=== PATIENT | male | born 1940 | race Caucasian/White ===

== ENCOUNTER 2020-03-23 06:57 | Inpatient (IN) ==
[2020-03-23] MEDS ORDERED: BACITRACIN INJ 50,000 UNIT VIAL ONE (07:17)
[2020-03-23] MEDS ORDERED: LIDOCAINE HCL 1% 20 ML VIAL ONE (07:17)
[2020-03-23] MEDS ORDERED: BUPIVACAINE 0.25% 30 ML VIAL ONE (07:17)
[2020-03-23] MEDS ORDERED: fentaNYL citrate 100 MCG/2 ML VIAL ONE (07:37)
[2020-03-23] MEDS ORDERED: MIDAZOLAM HCL 5 MG/ML 1 ML VIAL ONE (07:37)
[2020-03-23] MEDS ORDERED: CEFAZOLIN 250 MG/ML 1 GM VIAL ONE (07:37)
--- NOTE | 2020-03-23 10:12 | Post Anesthesia Assessment ---
Date of Service March 23, 2020 Post Sedation Assessment Vital Signs Temp Pulse Resp BP Pulse Ox 03/23/20 07:10 36.8 C 35 L 16 169/74 H 99 Recovery Score Activity: Moves 4 extremities Respiration: Deep Breath/Cough Circulation: +/-20% PreAnes Value Consciousness: Fully Awake Oxygen Saturation: > 92% On Room Air Discharge Sedation Level of Care: Fast Track Phase II Post Sedation Plan On clinical assessment, the patient appears to have tolerated the sedation without complications. Patient is recovering as anticipated. Patient will continue to be monitored by nursing and may be discharged when sedation discharge criteria are met per below protocol. Upon Completions of procedure up to 15 minutes continue every 5 minute vital signs and the P.A.R. score; then discharge to a Phase I or Fast Track to Phase II per the following guidelines: * Discharge Patient to appropriate Phase II area if PAR is 8 or greater or return to pre- procedure baseline. The post - procedure orders will be as directed. * If PAR score is less than 8 or not return to pre-procedure baseline then patient will follow Phase I monitoring till PAR is reached for Phase II. The Phase I may be done in procedure room or may call to secure a Phase I area. * If naloxone or flumazenil are used for reversal, hold in Phase I for continued monitoring from when last reversal dose was given for a minimum of 60 minutes or longer pending the nurse and/or physician discretion of patient condition before discharge to Phase II. Please call the Sedation Physician to re-evaluate and complete post-note for discharge to Phase II area. Do NOT discharge from procedure sedation or Phase 1 until post- sedation evaluation note is complete by procedure /sedation MD Sedation Discharge Instructions to be given to the patient at discharge to home.
--- NOTE | 2020-03-23 10:12 | History & Physical Bridge Note ---
Date of Service March 23, 2020 History & Physical Bridge Note I have examined the patient, reviewed the History & Physical and in the interval since the performance of the History & Physical I have noted the following changes of clinical significance: no changes noted
--- NOTE | 2020-03-23 10:12 | Pre Anesthesia Assessment ---
Date of Service March 23, 2020 Pre Sedation Assessment Vital Signs Temp Pulse Resp BP Pulse Ox 03/23/20 07:10 36.8 C 35 L 16 169/74 H 99 Cardiovascular + bradycardic and + irregularly irregular Respiratory normal respiratory effort, lungs clear to auscultation Pre-Sedation Airway Assessment Smoking Status: Never smoker Hx Sleep Apnea: No Short, Thick Neck: No Thyromental Distance: > or= 3.5 Finger Breadths Oral Cavity: + WNL Mallampati Class: I ASA: ASA3 NPO Status Date of Last Intake of Fluids: 03/22/20 Time of Last Intake of Fluids: 18:00 Date of Last Intake of Solid Food: 03/22/20 Time of Last Intake of Solid Foods: 18:00 Procedure Planning Contraindications for Sedation: none Current Medications Reviewed: Yes Notes The planned sedation has been discussed with the patient. Informed Consent was obtained. I have identified the patient, determined the appropriateness of sedation and have assessed the patient immediately prior to the procedure. All medicine(s) and interventions are by my order.
[2020-03-23] MEDS ORDERED: OXYCODONE/ACETAMINOPHEN 5mg/325mg TAB PO PRN (10:13)
[2020-03-23] MEDS ORDERED: ACETAMINOPHEN 325 MG TAB PO PRN (10:13)
--- NOTE | 2020-03-23 10:13 | Operative Report ---
Post Operative Report Pre & Post Diagnosis NICM, CHB, permanent AF Operation Date: 03/23/20 08:00 <No data on this case meets the specified criteria> I identified the patient and participated in the time-out.: Yes Procedure Operation Date: 03/23/20 08:00 Actual Procedures p Pacer with Ventricular Lead - Rosi Jensen DO s Lead LV (No Priopr Implant) - Rosi Jensen DO s Venogram, Unilateral - Rosi Jensen DO Surgeon Rosi Jensen, Fisher Diving none Estimated Blood Loss 20 Findings Consistent with Post-Op Diagnosis Specimens none Description of Procedure see official report I attest to the content of the Intraoperative Record and any orders documented therein. Any exceptions are noted below.
[2020-03-23] MEDS ORDERED: WARFARIN SOD 2.5 MG TAB PO SCH ×2 (10:15→16:00)
--- NOTE | 2020-03-23 10:22 | Discharge Summary ---
Date of Service March 24, 2020 Admission HPI Per Admitting Provider pt admitted for elective BIV ppm due to CHB and NICM Admission Exam Per Admitting Provider aaox3, NAD NC/AT, EOMI Supple No JVD irregular/irregular, bradycardic S1/S2, + murmur CTA b/l no w/r/r soft nt/nd no LE edema b/l skin intact no focal deficits Principal Diagnosis CHB and NICM s/p BiV ppm Discharge Exam aaox3, NAD NC/AT, EOMI Supple No JVD irregular/irregular S1/S2, + murmur CTA b/l no w/r/r soft nt/nd no LE edema b/l skin intact no focal deficits left pectoral incision intact, large hematoma over left pectoral chest region mild ecchymosis Discharge Data Allergies Allergy/AdvReac Type Severity Reaction Status Date / Time lisinopril AdvReac Cough Verified 03/23/20 07:34 Procedures Performed Operation Date: 03/23/20 08:00 Actual Procedures p Pacer with Ventricular Lead - Rosi Jensen DO s Lead LV (No Priopr Implant) - Rosi Jensen DO s Venogram, Unilateral - Rosi Jensen DO Ordered Studies ECG: BiV paced underlying AF CXR: No PTX, leads in position BiV ppm Interrogation: normal function 03/23/20 07:00 EP Lab Images for PACS ONCE Hospital Course (1) NICM (nonischemic cardiomyopathy): (2) Permanent atrial fibrillation: (3) CHB (complete heart block): (4) Hypotension: (5) Pacemaker pocket hematoma: Total Time Total Time Spent Total Time Spent (In Minutes): 60 Total Time Includes: Examination of the Patient, Discharge Planning, Medication Reconciliation and Other Discharge Plan Discharge Items Patient Disposition: Transfer Acute Care Hospital Reason For Visit: Bradycardia Discharge Diagnosis: CHB s/p BiV ppm Condition on Discharge: Serious Activity: As commented below Activity Comment: do not lift the left elbow over the left shoulder for 1 month Lifting: No more than 10 pounds Lifting Comment: do not lift more than 10 pounds with the left arm for 2 weeks Bathing: Keep incision dry Bathing Comment: keep dressing on & incision dry until wound check next week Sexual Activity: After two weeks Non-emergency contact: Broach Grinder Call non-emergency contact if: you have any medication questions Follow-up/Referrals: Waqas Lovell V., [Primary Care Provider] - Diet: Heart Healthy Addtl Attending Provider Instructions: transfer to [facility] Pending Studies at Discharge: No Stand-Alone Forms: My [facility] Skilled Items Patient informed of condition?: Yes DNR: No Discharge Level of Care: Other Communicable Disease: No Discharge Prognosis: Other Lines: Peripheral IV Urinary Catheter: No Medications and DC Order Prescriptions: Continued levothyroxine [Levoxyl] 75 mcg Tablet 75 mcg PO DAILY RF: 0 Discontinued losartan [Cozaar] 50 mg Tablet 50 mg PO DAILY RF: 0 warfarin [Coumadin] 2.5 mg Tablet 2.5 mg PO DAILY RF: 0 aspirin [Aspirin Low Dose] 81 mg Tablet,Delayed Release (Dr/Ec) 81 mg PO DAILY RF: 0 metoprolol succinate [Toprol XL] 25 mg Tablet Extended Release 24 Hr 12.5 mg PO DAILY RF: 0 Discharge Orders: Discharge Order (Routine); Ordered 03/24/20 Ordered By: Rosi Jensen Admission Data Admit Date/Time: 03/24/20 08:57 Attending Provider: Rosi Jensen Admit Provider: Rosi Jensen Primary Care Provider: Waqas Lovell V. Other Providers: Farooq Fink
[2020-03-23] MEDS ORDERED: LOSARTAN POTASSIUM 50 MG TAB PO SCH (12:30)
[2020-03-23 12:36] LABS: INR 2.2 (0.9-1.1); Prothrombin Time 22.4 Seconds (9.0-12.0)
[2020-03-23 12:44] LABS: Creatinine Clr Calc Pharmacy 71.2 ml/min; Est GFR (African American) 95.2; Est GFR (Non-African American) 82.1
[2020-03-23] MEDS: METOPROLOL SUCC 25MG EXT REL TAB PO SCH (13:45)
--- NOTE | 2020-03-23 16:14 | Electrocardiogram Report ---
Test Reason : Blood Pressure : / mmHG Vent. Rate : 070 BPM Atrial Rate : 060 BPM P-R Int : 000 ms QRS Dur : 140 ms QT Int : 494 ms P-R-T Axes : 000 -55 061 degrees QTc Int : 533 ms Ventricular-paced rhythm Abnormal ECG No previous ECGs available Confirmed by Miki Romano ([id number]) on 03/23/2020 4:13:25 PM Referred By: Rosi Jensen Confirmed By:Miki Romano
[2020-03-24] MEDS ORDERED: PHYTONADIONE 10 MG in SODIUM CHLORIDE 0.9% 50 ML IV STA (01:27)
[2020-03-24] MEDS ORDERED: SODIUM CHLORIDE 0.9% 250 ML IV PRN ×4 (01:27→06:37)
--- NOTE | 2020-03-24 01:47 | Hospitalist Consultation ---
Date of Consultation March 24, 2020 Assessment & Plan (1) Hypotension: Final Assessment and Recommendations as follows : Transient hypotension Multifactorial : Vagal response to pain Hypovolemia from PPM hematoma, SSS sp recent PPM on Coumadin, therapeutic INR of 2.2 on admission chronic systolic heart failure secondary to nonischemic cardiomyopathy (EF 43%, TTE 2019), euvolemic hyperlipidemia on statin Rx hypothyroidism, recent outpatient TSH slightly elevated at 4.8 chronic anemia (baseline hemoglobin of 13) Analgesia Follow CBC, chem, coags Appropriate to hold aspirin and Coumadin for now given PPM hematoma. Reverse coagulopathy pending INR results. Transfuse PRBC if hemoglobin less than 8 and or for symptomatic anemia. Maintain pressure dressing. Consider CT chest imaging N.p.o. for now in anticipation of procedure. Case discussed with Dr. Jensen (EPS) who is in agreement with plan of care. Dr. Jensen informed me that Dr. Ren ([facility] mathematics technician stallion manager) was on the way to the hospital to evaluate patient and to assume care. Thank you very much for this consultation. History of Present Illness Reason for Consultation: Chest pain, low blood pressure Requesting Physician: Dr. Jensen Attending Physician: Rosi Jensen, History of Present Illness PCP : Dr. Lovell History obtained from patient and records. Medical history significant for chronic systolic heart failure secondary to nonischemic cardiomyopathy (EF 43%, TTE 2019), SSS sp PPM on Coumadin, hypertension, hyperlipidemia, hypothyroidism, chronic anemia (baseline hemoglobin of 13). Patient underwent elective PPM placement for complete heart block yesterday. Postprocedure, patient noted achy left chest wall discomfort. Past midnight, patient complained to RN of worsening pain on left chest incision site. Left chest wall area was noted to be swollen and tender to touch. EPS specialist stallion manager recommended pressure dressing. Around 1 AM, patient noted to be diaphoretic and nauseous and complaining of increased pain. SBP 60 to 70s transiently. Code purple called. SBP currently 100s. Patient currently comfortable but still complaining of left chest wall pain. Medical History as above Surgical History : Cataract surgery, ankle fracture surgery, partial colectomy, back surgery, hernia repair, vitrectomy Family History : Heart disease, diabetes, stroke Personal/Social history : Non-smoker, daily alcohol intake, denies abuse Allergies Allergy/AdvReac Type Severity Reaction Status Date / Time lisinopril AdvReac Cough Verified 03/23/20 07:34 Home Medications Home Medications Medication Instructions Recorded Confirmed Type aspirin [Aspirin Low Dose] 81 mg PO DAILY 03/23/20 03/23/20 History levothyroxine [Levoxyl] 75 mcg PO DAILY 03/23/20 03/23/20 History losartan [Cozaar] 50 mg PO DAILY 03/23/20 03/23/20 History metoprolol succinate 25 mg PO DAILY 30 Days #30 tab 03/23/20 Rx metoprolol succinate [Toprol XL] 12.5 mg PO DAILY 03/23/20 03/23/20 History warfarin [Coumadin] 2.5 mg PO DAILY 03/23/20 03/23/20 History Patient History Social History Preferred Language: Slovenian Communication Ability: Effective Engineer And Geologist Required: No Beliefs That Will Affect Care: None Current Living Situation: Significant Other Feels Safe at Home: Yes Smoking Status: Never smoker Hx Alcohol Use: Yes Alcohol type: beer, wine and hard liquor Hx Substance Use: No Review of Systems Review of Systems: As per HPI, all 10 systems reviewed, all other ROS negative Physical Exam Physical Exam: GENERAL: Slightly uncomfortable, pleasant, no respiratory distress SKIN: Pallor , warm HEENT: Pale palpebral conjunctivae, no ptosis, dry buccal mucosa, nasal cannula in place NECK : Supple, no tenderness CHEST : Decreased breath sounds, pressure dressing on left anterior chest wall HEART : Unable to examine due to pressure dressing on anterior chest wall ABDOMEN: Some distention, nontender EXTREMITIES : No LE swelling/tenderness, no other conspicuous deformities noted NEUROLOGIC : Coherent, no facial asymmetry, no other gross focality Results & Data Results & Data ([facility]) Vital Signs (Past 12 Hours) Vital Signs Temp Pulse Resp BP Pulse Ox 03/24/20 01:12 88/53 L 03/24/20 01:10 70/40 L 03/24/20 01:04 36.9 C 57 L 20 78/54 L 95 03/23/20 23:26 36.7 C 66 20 95 03/23/20 19:57 36.4 C L 57 L 18 156/85 H 94 03/23/20 14:30 70 144/82 H 03/23/20 14:00 67 136/72 03/23/20 13:49 80 140/72 Diagnostic Findings Chest x-ray as per my interpretation PPM, soft tissue swelling over left chest wall: EKG as per my interpretation : Rate 90, paced rhythm
[2020-03-24 01:49] LABS: Basophils # (auto) 0.06 K/uL (0-0.2); Basophils % (auto) 0.7 %; Eosinophils # (auto) 0.26 K/uL (0-0.5); Eosinophils % (auto) 3.1 %; Hematocrit (blood only) 33.2 % (42-52); Hemoglobin 11.1 g/dL (14.0-18.0); Immature Granulocytes # (auto) 0.02 K/uL (0.00-0.02); Immature Granulocytes % (auto) 0.2 %; Lymphocytes # (auto) 1.89 K/uL (1.2-3.4); Lymphocytes % (auto) 22.4 %; Mean Corpuscular Hemoglobin 32.4 pg (25-34); Mean Corpuscular Volume 96.8 fL (80-100); Mean Platelet Volume 11.2 fL (7.4-10.4); Monocytes # (auto) 0.68 K/uL (0.11-0.59); Monocytes % (auto) 8.1 %; Neutrophils # (auto) 5.51 K/uL (1.4-6.5); Neutrophils % (auto) 65.5 %; Platelet Count 128 K/uL (130-400); RDW Standard Deviation 49.6 fL (36.4-46.3); Red Blood Count 3.43 M/uL (4.7-6.1); White Blood Count 8.42 K/uL (4.8-10.8)
[2020-03-24 01:51] LABS: Mean Corpuscular Hgb Conc 33.4 g/dL (32-36)
[2020-03-24 01:58] LABS: INR 2.4 (0.9-1.1); Prothrombin Time 23.7 Seconds (9.0-12.0)
[2020-03-24] MEDS ORDERED: PHYTONADIONE 5 MG in SODIUM CHLORIDE 0.9% 50 ML IV ONE ×2 (02:08→12:30)
[2020-03-24 02:09] LABS: Albumin Level 2.9 gm/dl (3.4-5.0); BUN Creatinine Ratio 19.7 (10-20); Calcium 7.6 mg/dl (8.5-10.1); Creatinine Clr Calc Pharmacy 56.4 ml/min; Est GFR (African American) 75.9; Est GFR (Non-African American) 65.5; Magnesium 1.8 mg/dl (1.8-2.4); Potassium 3.7 mmol/L (3.5-5.1)
[2020-03-24 02:20] LABS: Albumin Globulin Ratio 1.2 (0.9-2); Bilirubin,Total 1.8 mg/dl (0.2-1); Globulin 2.5 gm/dl (2.5-4.0); Thyroid Stimulating Hormone 9.75 uIu/ml (0.300-4.500); Total Protein 5.4 gm/dl (6.4-8.2)
--- NOTE | 2020-03-24 02:28 | Cardiology Progress Note ---
Date of Service March 24, 2020 Assessment & Plan (1) Pacemaker pocket hematoma: 80 year old male underwent biventricular pacemaker today, due to symptomatic bradycardia, permanent atrial fibrillation, bifascicular block, LVEF 45%. Patient has developed a very large post procedure hematoma. INR post procedure 2.2, on repeat 2.4. CXR Stable. Hbg 11.1, BP had been low , normalized now. Also had morphine around the time of the low BP. Plan to reverse his INR with 2 units FFP, transfuse 1 unit of PRBCs due to what is felt to be large volume blood loss with Hgb / Hct value lagging behind clinical findings. Transfer to [facility] floor ICU. Consult Critical care , pt examined with Mr Ruelas of the critical care team, and plan discussed. NPO, anticipate operative evacuation in EP lab tomorrow. (2) Permanent atrial fibrillation: (3) CHB (complete heart block): (4) NICM (nonischemic cardiomyopathy): Subjective Patient seen in coverage of Dr Jensen for large left subclavian hematoma, transient hypotension. First observed by nursing at about 11:30 am, has progressed. SBP had been down to 70 mm Hg, however with application of pressure bandage, SBP improved to 130. Pt currently comfortable. Physical Exam Physical Exam: 133/72 , HR 70, pulse ox 95% on room air CHEST: there is a large hematoma extending from left subclavian pacemaker pocket to the left pectoral region Lungs: Clear Telemetry: V-paced rhythm , underlying permanent atria fibrillation noted per history Results & Data Vital Signs (Past 12 Hours) Vital Signs Temp Pulse Resp BP Pulse Ox 03/24/20 01:12 88/53 L 03/24/20 01:10 70/40 L 03/24/20 01:04 36.9 C 57 L 20 78/54 L 95 03/23/20 23:26 36.7 C 66 20 95 03/23/20 19:57 36.4 C L 57 L 18 156/85 H 94 03/23/20 14:30 70 144/82 H Laboratory Results Cardiac Enzymes 03/24/20 Range/Units 01:43 AST 22 (15-37) U/L Coagulation 03/23/20 03/24/20 Range/Units 12:09 01:43 PT 22.4 H 23.7 H (9.0-12.0) Seconds CBC 03/24/20 Range/Units 01:43 WBC 8.42 (4.8-10.8) K/uL RBC 3.43 L (4.7-6.1) M/uL Hgb 11.1 L (14.0-18.0) g/dL Hct 33.2 L (42-52) % Plt Count 128 L (130-400) K/uL Neut # (Auto) 5.51 (1.4-6.5) K/uL Lymph # (Auto) 1.89 (1.2-3.4) K/uL Parke # (Auto) 0.68 H (0.11-0.59) K/uL Eos # (Auto) 0.26 (0-0.5) K/uL Baso # (Auto) 0.06 (0-0.2) K/uL Comprehensive Metabolic Panel 03/23/20 03/24/20 Range/Units 12:09 01:43 Sodium 138 (136-145) mmol/L Potassium 3.7 (3.5-5.1) mmol/L Chloride 108 H (98-107) mmol/L Carbon Dioxide 23 (21-32) mmol/L BUN 21 H (7-18) mg/dl Creatinine 0.84 1.06 (0.6-1.4) mg/dl Glucose 118 H (70-99) mg/dl Calcium 7.6 L (8.5-10.1) mg/dl AST 22 (15-37) U/L ALT 22 (12-78) U/L Alkaline Phosphatase 49 (45-117) U/L Total Protein 5.4 L (6.4-8.2) gm/dl Albumin 2.9 L (3.4-5.0) gm/dl Intake and Output 03/23/20 03/23/20 03/24/20 14:59 22:59 06:59 Intake Total 275 / 275 Output Total 700 / 1850 1150 / 1850 Balance -700 / -1575 -875 / -1575 Intake: Oral 275 / 275 Output: Urine 700 / 1250 550 / 1250 Stool 600 / 600 Other: Weight 83.7 kg Patient Weight 03/24/20 06:59 Weight 83.7 kg
--- NOTE | 2020-03-24 02:53 | Communication Note ---
Date of Service: March 24, 2020 With Mr Alexander permission, I called Macy Chan his primary contact and updated her of event. Will update again in am.
--- NOTE | 2020-03-24 03:14 | Critical Care Consultation ---
Date of Consultation March 24, 2020 Assessment & Plan (1) Pacemaker pocket hematoma: 80-year-old male with complete heart block, received pacemaker last night and developed large hematoma at pacemaker insertion site Neuro - [facility] ICU: Negative Cardiac - Hypotensionpatient was temporarily hypotensive, possible vagal response versus orthostatic hypotension in the setting of acute blood loss -Patient seems to be improved with 1 L bolus crystalloid, currently normotensive without pressors -We will hold losartan for the time being, would continue MTP for rate Complete heart block/A. fibstatus post pacer and currently V paced -Continue MTP -Hold Coumadin and ASA for hematoma/acute blood loss Respiratory - Currently maintaining sats on 2 L nasal cannula, monitor continuous pulse ox GI - N.p.o. for surgical intervention this morning RENAL/LYTES - Monitor electrolytes, replete as indicated - Strict I's and O's ENDO - Hypothyroidism: Follow-up TSH, continue Synthroid No history diabetes ICU hyperglycemic protocol HEME - Pacemaker pocket hematoma/acute blood loss anemia/elevated INRpatient developed large raised hematoma at surgical site overnight, became symptomatic -Plan for patient to go to OR for hematoma evacuation per Dr. Chan this morning -We will monitor in ICU given earlier hemodynamic changes -Transfusing 2 units FFP, 5 vitamin K, holding Coumadin and aspirin -Monitoring H&H every 2 hours -We will hold on RBC transfusion that was previously ordered as hemoglobin has remained at 11.22 -We will continue to monitor in ICU for now ID - No indication for infectious process at this time LINES/IV ACCESS - PIV's DVT PROPHYLAXIS - SCDs, holding anticoagulation as patient has developed hematoma postop Thank you for allowing us to participate in the care of this patient. Please refer to my attending physician's documentation for any further recommendations. (2) CHB (complete heart block): (3) Permanent atrial fibrillation: (4) NICM (nonischemic cardiomyopathy): History of Present Illness Attending Physician: Rosi Jensen DO History of Present Illness Mr. Batista is an 80-year-old male that underwent biventricular pacemaker earlier today for symptomatic bradycardia with complete heart block and underlying A. fib (on Coumadin). I responded to a code purple earlier tonight in which the patient appeared to have a syncopal episode and had earlier developed a significant hematoma over his pacemaker that had been developing since earlier in the night. Patient was given 1 L bolus of crystalloid, and began to show improvement. Hemodynamic status stabilized, however pressures do remain soft and he is now requiring 2 L nasal cannula. [facility] residential gas heat technician Dr. Gates did come to the bedside to evaluate the patient, and contacted Dr. Macy Chan who would place the pacemaker yesterday. Patient scheduled to undergo hematoma evacuation in the morning. Given FFP and vitamin K to reverse INR and transfuse 1 unit RBCs. Transferred to ICU for close monitoring. Currently patient is hemodynamically stable without need for vasopressors, and is maintaining sats on 2 L nasal cannula and appears comfortable. He does report mild pain which is superficial at the site of the hematoma and some mild nausea. Currently he denies dizziness/syncope, headache, difficulty breathing or shortness of breath, chest pain, palpitations, abdominal pain, vomiting, or diarrhea. Allergies Allergy/AdvReac Type Severity Reaction Status Date / Time lisinopril AdvReac Cough Verified 03/23/20 07:34 Home Medications Home Medications Medication Instructions Recorded Confirmed Type aspirin [Aspirin Low Dose] 81 mg PO DAILY 03/23/20 03/23/20 History levothyroxine [Levoxyl] 75 mcg PO DAILY 03/23/20 03/23/20 History losartan [Cozaar] 50 mg PO DAILY 03/23/20 03/23/20 History metoprolol succinate 25 mg PO DAILY 30 Days #30 tab 03/23/20 Rx metoprolol succinate [Toprol XL] 12.5 mg PO DAILY 03/23/20 03/23/20 History warfarin [Coumadin] 2.5 mg PO DAILY 03/23/20 03/23/20 History Patient History Social History Preferred Language: Icelandic Communication Ability: Effective Campus President Required: No Beliefs That Will Affect Care: None Current Living Situation: Significant Other Feels Safe at Home: Yes Smoking Status: Never smoker Hx Alcohol Use: Yes Alcohol type: beer, wine and hard liquor Hx Substance Use: No Review of Systems Review of Systems: All systems reviewed & are unremarkable except as noted in HPI & below Physical Exam Constitutional: cooperative and comfortable Eyes: PERRL, conjunctivae normal, anicteric sclerae ENMT: external ear and nose normal, oropharynx normal Neck: trachea midline, no thyromegaly Respiratory: normal respiratory effort, lungs clear to auscultation Cardiovascular: RRR, no murmur, no edema Vessels: no JVD Extremities: no edema V paced rhythm Gastrointestinal (Abdomen): normal bowel sounds, soft, nontender, no hepatosplenomegaly Skin: Large raised hematoma on the left upper anterior wall of the chest over the site of the pacemaker Neurologic: PERRL, EOMI, accommodation nl, no face palsy, no dysarthria Psychiatric: A+Ox3, euthymic affect Results & Data Results & [facility] ([facility]) Vital Signs (Past 12 Hours) Vital Signs Temp Pulse Pulse Resp BP Pulse Ox 03/24/20 03:01 37.5 C 82 28 H 91/59 L 96 03/24/20 02:34 73 03/24/20 01:12 88/53 L 03/24/20 01:10 70/40 L 03/24/20 01:04 36.9 C 57 L 20 78/54 L 95 03/23/20 23:26 36.7 C 66 20 95 03/23/20 19:57 36.4 C L 57 L 18 156/85 H 94 Coding Level of Care Code 39233 Office/OBS Consult Lvl 5 Diagnoses Pacemaker pocket hematoma T82.837A CHB (complete heart block) I44.2 Permanent atrial fibrillation I48.21 NICM (nonischemic cardiomyopathy) I42.8
[2020-03-24 03:25] LABS: Hematocrit (blood only) 32.6 % (42-52); Hemoglobin 11.1 g/dL (14.0-18.0)
[2020-03-24] MEDS ORDERED: LORazepam 0.25 MG/0.5 ML VIAL IV STA (03:37)
[2020-03-24 06:13] LABS: Hematocrit (blood only) 28.2 % (42-52); Hemoglobin 9.7 g/dL (14.0-18.0)
[2020-03-24 06:27] LABS: INR 1.6 (0.9-1.1); Prothrombin Time 16.5 Seconds (9.0-12.0)
[2020-03-24] MEDS ORDERED: LEVOTHYROXINE SODIUM 75 MCG TABLET PO SCH (06:30)
[2020-03-24] MEDS ORDERED: FUROSEMIDE 20 MG in SYRINGE 0 ML IV ONE (06:50)
[2020-03-24] MEDS ORDERED: LORazepam 0.25 MG/0.5 ML VIAL IV PRN (07:17)
--- NOTE | 2020-03-24 07:20 | XRay Report ---
XR chest 1V portable CLINICAL HISTORY: Atypical chest pain COMPARISON STUDY: No previous studies for comparison. FINDINGS: The heart is enlarged. There is a left subclavian central venous pacemaker. There is no lob ar consolidation. There is hazy increased attenuation of the left upper lung zone which may be relate d to technical factors. A follow-up PA and lateral study is recommended.[ IMPRESSION: 1. Increased attenuation of the left upper lung zone, finding which could be related to technical fac tors or overlying soft tissue. A follow-up PA and lateral study is recommended. ACT 112: Negative or not required by law. Electronically signed by: Azael Levin M.D. 03/24/2020 7:19 AM
[2020-03-24] MEDS ORDERED: ASPIRIN 81 MG ECTAB PO SCH (09:00)
[2020-03-24 09:22] LABS: Hematocrit (blood only) 26.4 % (42-52)
[2020-03-24] MEDS: METOPROLOL SUCC 25MG EXT REL TAB PO SCH (09:41)
[2020-03-24] MEDS ORDERED: fentaNYL citrate 100 MCG/2 ML VIAL ONE ×2 (10:00→11:55)
[2020-03-24] MEDS ORDERED: CEFAZOLIN 250 MG/ML 1 GM VIAL ONE (10:00)
[2020-03-24] MEDS ORDERED: MIDAZOLAM HCL 5 MG/ML 1 ML VIAL ONE (10:00)
[2020-03-24] MEDS ORDERED: BUPIVACAINE 0.25% 30 ML VIAL ONE (10:02)
[2020-03-24] MEDS ORDERED: LIDOCAINE HCL 1% 20 ML VIAL ONE (10:02)
[2020-03-24] MEDS ORDERED: BACITRACIN INJ 50,000 UNIT VIAL ONE ×2 (10:02→11:35)
--- NOTE | 2020-03-24 10:28 | Pre Anesthesia Assessment ---
Date of Service March 24, 2020 Pre Sedation Assessment Vital Signs Temp Pulse Pulse Resp BP BP Pulse Ox 03/24/20 10:20 37.0 C 86 16 119/78 96 03/24/20 09:42 36.6 C 87 18 124/71 97 03/24/20 09:15 36.6 C 73 21 119/75 97 03/24/20 09:11 36.6 C 67 17 124/60 97 03/24/20 08:49 66 03/24/20 04:50 36.6 C 76 22 123/84 98 03/24/20 04:43 36.6 C 76 22 122/76 100 03/24/20 04:27 36.6 C 66 20 122/70 98 03/24/20 04:23 36.6 C 90 21 123/70 97 03/24/20 03:53 36.5 C 81 20 107/78 94 03/24/20 03:35 36.4 C L 81 105/72 97 03/24/20 03:01 37.5 C 82 28 H 91/59 L 96 03/24/20 02:34 73 03/24/20 01:12 88/53 L 03/24/20 01:10 70/40 L 03/24/20 01:04 36.9 C 57 L 20 78/54 L 95 03/23/20 23:26 36.7 C 66 20 95 03/23/20 19:57 36.4 C L 57 L 18 156/85 H 94 03/23/20 14:30 70 144/82 H 03/23/20 14:00 67 136/72 03/23/20 13:49 80 140/72 03/23/20 13:30 74 16 139/86 98 03/23/20 13:00 74 136/65 03/23/20 12:15 78 16 135/76 03/23/20 12:00 77 16 156/83 H 03/23/20 11:45 36.6 C 71 16 171/86 H 98 03/23/20 11:10 66 18 159/65 H 95 03/23/20 10:55 69 18 146/90 H 95 03/23/20 10:40 66 18 155/70 H 95 Cardiovascular RRR, no murmur, no edema Respiratory normal respiratory effort, lungs clear to auscultation Pre-Sedation Airway Assessment Smoking Status: Never smoker Hx Sleep Apnea: No Short, Thick Neck: No Thyromental Distance: > or= 3.5 Finger Breadths Oral Cavity: + WNL Mallampati Class: I ASA: ASA3 NPO Status Date of Last Intake of Fluids: 03/23/20 Time of Last Intake of Fluids: 20:00 Date of Last Intake of Solid Food: 03/23/20 Time of Last Intake of Solid Foods: 20:00 Procedure Planning Contraindications for Sedation: none Current Medications Reviewed: Yes Notes The planned sedation has been discussed with the patient. Informed Consent was obtained. I have identified the patient, determined the appropriateness of sedation and have assessed the patient immediately prior to the procedure. All medicine(s) and interventions are by my order.
--- NOTE | 2020-03-24 10:31 | History & Physical Bridge Note ---
Date of Service March 24, 2020 History & Physical Bridge Note I have examined the patient, reviewed the History & Physical and in the interval since the performance of the History & Physical I have noted the following changes of clinical significance: Pt is POD 1 from biv pacemaker; about 12 hours after the procedure he developed a large hematoma over the left chest and pectoral region; he was transferred to the ICU; his coumadin was reversed and he is currently recieving a unit of PRBC. I reviewed the case with Dr. Amanda my EP partner who agreed pocket revision and hematoma is necessary. Informed consent was obtained over the phone with his Macy Chan as pt is awake and alert but at times a little disoriented.
--- NOTE | 2020-03-24 10:41 | XRay Report ---
XR chest 2V PA/lateral CLINICAL HISTORY: post biv ppm pain COMPARISON STUDY: 03/24/2020 1:32 AM FINDINGS: Improved visibility left pulmonary apex. Bipolar cardiac pacer in good position. Right lung remains clear. IMPRESSION: Improved exam with the left lung currently considered clear. ACT 112: Negative or not required by law. The above report was generated using voice recognition software. It may contain grammatical, syntax or spelling errors. Electronically signed by: Héctor Juarez M.D. 03/24/2020 10:40 AM
--- NOTE | 2020-03-24 12:49 | Post Anesthesia Assessment ---
Date of Service March 24, 2020 Post Sedation Assessment Vital Signs Temp Pulse Pulse Resp BP BP Pulse Ox 03/24/20 12:30 37 C 70 16 108/60 100 03/24/20 12:15 37 C 75 16 103/64 100 03/24/20 11:59 36.7 C 57 L 16 119/56 L 100 03/24/20 11:44 37 C 54 L 16 131/60 100 03/24/20 11:29 37.1 C 59 L 16 90/52 L 100 03/24/20 11:20 37.1 C 60 16 144/62 H 100 03/24/20 10:50 36.8 C 59 L 16 115/59 L 100 03/24/20 10:20 37 C 86 86 16 119/78 119/78 97 03/24/20 09:59 36.6 C 98 H 17 123/72 98 03/24/20 09:42 36.6 C 87 18 124/71 97 03/24/20 09:15 36.6 C 73 21 119/75 97 03/24/20 09:11 36.6 C 67 17 124/60 97 03/24/20 08:58 36.6 C 96 H 15 124/60 97 03/24/20 08:49 66 03/24/20 08:00 36.6 C 105 H 8 L 122/59 L 95 03/24/20 07:28 87 0 L 111/64 95 03/24/20 04:50 36.6 C 76 22 123/84 98 03/24/20 04:43 36.6 C 76 22 122/76 100 03/24/20 04:27 36.6 C 66 20 122/70 98 03/24/20 04:23 36.6 C 90 21 123/70 97 03/24/20 03:53 36.5 C 81 20 107/78 94 03/24/20 03:35 36.4 C L 81 105/72 97 03/24/20 03:01 37.5 C 82 28 H 91/59 L 96 03/24/20 02:34 73 03/24/20 01:12 88/53 L 03/24/20 01:10 70/40 L 03/24/20 01:04 36.9 C 57 L 20 78/54 L 95 03/23/20 23:26 36.7 C 66 20 95 03/23/20 19:57 36.4 C L 57 L 18 156/85 H 94 03/23/20 14:30 70 144/82 H 03/23/20 14:00 67 136/72 03/23/20 13:49 80 140/72 03/23/20 13:30 74 16 139/86 98 03/23/20 13:00 74 136/65 Recovery Score Activity: Moves 4 extremities Respiration: Deep Breath/Cough Circulation: +/-20% PreAnes Value Consciousness: Fully Awake Oxygen Saturation: > 92% On Room Air Post Anesthesia Score: 10 Discharge Sedation Level of Care: Fast Track Phase II Post Sedation Plan On clinical assessment, the patient appears to have tolerated the sedation without complications. Patient is recovering as anticipated. Patient will continue to be monitored by nursing and may be discharged when sedation discharge criteria are met per below protocol. Upon Completions of procedure up to 15 minutes continue every 5 minute vital signs and the P.A.R. score; then discharge to a Phase I or Fast Track to Phase II per the following guidelines: * Discharge Patient to appropriate Phase II area if PAR is 8 or greater or return to pre- procedure baseline. The post - procedure orders will be as directed. * If PAR score is less than 8 or not return to pre-procedure baseline then patient will follow Phase I monitoring till PAR is reached for Phase II. The Phase I may be done in procedure room or may call to secure a Phase I area. * If naloxone or flumazenil are used for reversal, hold in Phase I for continued monitoring from when last reversal dose was given for a minimum of 60 minutes or longer pending the nurse and/or physician discretion of patient condition before discharge to Phase II. Please call the Sedation Physician to re-evaluate and complete post-note for discharge to Phase II area. Do NOT discharge from procedure sedation or Phase 1 until post- sedation evaluation note is complete by procedure /sedation MD Sedation Discharge Instructions to be given to the patient at discharge to home.
--- NOTE | 2020-03-24 12:52 | Operative Report ---
Post Operative Report Pre & Post Diagnosis large hematoma under the pectoralis muscle Operation Date: 03/23/20 08:00 <No data on this case meets the specified criteria> Operation Date: 03/24/20 10:30 <No data on this case meets the specified criteria> I identified the patient and participated in the time-out.: Yes Procedure Operation Date: 03/23/20 08:00 Actual Procedures p Pacer with Ventricular Lead - Rosi Jensen DO s Lead LV (No Priopr Implant) - Rosi Jensen DO s Venogram, Unilateral - Rosi Jensen DO Operation Date: 03/24/20 10:30 Actual Procedures p Cineradiography w/Routine Exam - Rosi Jensen DO extraction of hematoma Surgeon Rosi Jensen DO [employer]sw[employer] none Estimated Blood Loss 20 Findings Consistent with Post-Op Diagnosis Specimens none Description of Procedure hematoma located under the pectoralis muscle; I was able to suction out sero-sanguinous fluid (500cc) however it reaccumulated; at this juncture I spoke with CT surgery on facetime from [facility]; recommended close up incision and transfer to [facility] for higher level of monitor and care A full detailed op note to follow I attest to the content of the Intraoperative Record and any orders documented therein. Any exceptions are noted below.
--- NOTE | 2020-03-24 13:15 | Communication Note ---
Date of Service: March 24, [address] Jensen while patient on procedure table in the EP suite. 500 ml of blood evacuated, however re-accumulation noted. Repeat point of care intraoperative INR was 1.3. Vitamin K 5 mg and an additional 1 unit PRBCs being administered. HR 70s paced, SBP > 100 mm Hg, respiratory status stable. While Dr Jensen was scrubbed performing case, I called [facility] and discussed case with Dr Blount of CT surgery and Dr Pacheco hotel concierge for clinical cardiology. I expressed my concerns of large pocket hematoma, reaccumulating without definite source identified. I recommend transfer to tertiary center for ongoing evaluation with CT surgery, vascular surgery, and interventional radiology available as those services not available here. Dr Pacheco accepted pt in transfer by air ambulance. Patient to move from EP suite to first floor ICU then transfer. Dr Jensen updated family by phone.
--- NOTE | 2020-03-24 13:15 | Electrocardiogram Report ---
Test Reason : Blood Pressure : / mmHG Vent. Rate : 089 BPM Atrial Rate : 093 BPM P-R Int : 000 ms QRS Dur : 130 ms QT Int : 466 ms P-R-T Axes : 000 -53 068 degrees QTc Int : 566 ms Ventricular-paced rhythm Abnormal ECG When compared with ECG of 23-MAR-2020 13:38, Vent. rate has increased BY 19 BPM Confirmed by Miki Romano ([id number]) on 03/24/2020 1:14:59 PM Referred By: Rosi Jensen Confirmed By:Miki Romano
--- NOTE | 2020-03-24 13:16 | Electrocardiogram Report ---
Test Reason : Blood Pressure : / mmHG Vent. Rate : 087 BPM Atrial Rate : 094 BPM P-R Int : 000 ms QRS Dur : 130 ms QT Int : 486 ms P-R-T Axes : 000 -50 060 degrees QTc Int : 584 ms Poor data quality, interpretation may be adversely affected Ventricular-paced rhythm Abnormal ECG When compared with ECG of 24-MAR-2020 01:27, (unconfirmed) Vent. rate has decreased BY 2 BPM Confirmed by Miki Romano ([id number]) on 03/24/2020 1:16:26 PM Referred By: Rosi Jensen Confirmed By:Miki Romano
[2020-03-24 15:32] LABS: Hematocrit (blood only) 31.5 % (42-52); Hemoglobin 10.6 g/dL (14.0-18.0)
--- NOTE | 2020-03-31 12:49 | Operative Report (OR) ---
DATE OF OPERATION: 03/23/2020 PREOPERATIVE DIAGNOSES: Complete heart block, nonischemic cardiomyopathy and permanent atrial fibrillation. POSTOPERATIVE DIAGNOSES: Complete heart block, nonischemic cardiomyopathy and permanent atrial fibrillation. PROCEDURE: Biventricular permanent pacemaker under fluoroscopic guidance along with peripheral venogram. SURGEON: Rosi Jensen DO. SLIP DUMPER: None. ANESTHESIA: Monitored conscious sedation administered under my supervision by Liat Khan. Start time was 08:28, end time was 10:05 a total of 3 mg of Versed and 100 mcg of fentanyl. INTRAVENOUS FLUIDS: 47 mL. ANTIBIOTICS: Two grams of Ancef. CONTRAST: 40 mL. BLOOD LOSS: 20 mL. COMPLICATIONS: None. CONDITION: Stable. URINE OUTPUT: Not applicable. SPECIMENS: None. FINDINGS: See below. DRAINS: None. INDICATIONS: This is an 80-year-old gentleman with past medical history for permanent atrial fibrillation on Coumadin with a bifascicular block, hypertension, hypothyroidism, history of cardiomyopathy, ejection fraction 45%, osteoarthritis and diverticulosis, who presented to our office and complete heart block was recommended a biventricular pacemaker. CONSENT: Consent was obtained prior to the patient going into the electrophysiology lab. The patient was informed of risks, benefits and alternative procedure. Risks include but not limited to sudden cardiac , cardiac arrhythmias, cerebrovascular accident, myocardial infarction, injury to the blood vessels, chamber of the heart, lung, bleeding, and infection. The patient understood these risks and agreed to the procedure as planned. Informed consent was obtained. DESCRIPTION OF THE PROCEDURE: The patient was brought into the electrophysiology lab in a fasting state. He was connected to continuous quality assurance monitor body. Timeout was performed to ensure patient's identity and procedure correctly. The patient was prepped and draped over the left infraclavicular space in normal surgical standard fashion. Monitored conscious sedation was given throughout the procedure for patient's comfort level. He received prophylactic antibiotics prior to incision. [place] precautions maintained throughout the procedure. A 10 mL of 1% lidocaine, bupivacaine mixture were given in the left deltopectoral groove. Incision was made in left deltopectoral groove. Blunt dissection was performed down to identify cephalic vein; however, none could be identified, so a peripheral venogram using 10 mL of IV contrast diluted in 20 mL of saline was performed. I had to repeat venogram a few times because the flow was very slow and this access was difficult. I was able to ultimately get subclavian access, but it was pretty proximal and an 8-Moldovan sheath was inserted over the guidewire without any resistance. Then, the dilator was removed and a second guidewire was inserted through the 8-Moldovan sheath to allow for retained venous access. Sheath was removed, flushed and reinserted over the dilator, and then reinserted over the guidewire. The guidewire and dilator removed and the right ventricular lead was advanced into right ventricle and positioned in intraventricular apex under fluoroscopic guidance. There was adequate pacing and sensing thresholds and no diaphragmatic stimulation with high output pacing. The 8-Moldovan sheath was peeled away and lead was fixated to pectoralis muscle using 0 silk suture. A 9.5-Moldovan sheath was inserted over the retained guidewire without any resistance. Guidewire and dilator were removed. Then, the Medtronic MPX outer coronary sinus sheath was advanced into the right atrium over a Glidewire. The Glidewire and dilator removed and then the coronary sinus was cannulated using a Decapolar Génie Numérique coronary sinus catheter. The MPX was advanced over it and then I was able to wire a nice posterolateral branch with a Whisper wire and ran the lead over that. There was adequate pacing and sensing thresholds and no diaphragmatic stimulation with high output pacing. The MPX sheath was slit under fluoroscopic guidance followed then by the 9.5-Moldovan sheath. I did put a pursestring around the venous puncture site area because using a 2-[address] needle as there was some backbleeding. A pacemaker pocket was created using blunt dissection over the pectoralis muscle. The pocket was flushed with copious amounts of bacitracin using saline wash and inspected for hemostasis. The pulse generator was then attached to leads making sure that the pins were in appropriate position, passed set screw and set screws were all tightened. Pulse generator was then placed in the pocket, making sure that the leads were lying flat beneath the device. A stay stitch using 0 silk suture was used to secure the device to pectoralis muscle. The incision was then closed in 3-layer fashion with 2-0 Vicryl interrupted suture followed by 3-0 Vicryl interrupted suture, followed by 4-0 Monocryl running stitch and Dermabond was applied followed by a Steve and micropore dressing. EQUIPMENT: 1. Pulse generator is a Medtronic Alissa quad CRTP MRI SureScan [id number], serial number [id number]. 2. Right ventricular lead, Medtronic 5076-58 cm, serial number [id number]. 3. Left ventricular lead, Medtronic 4393-88 cm, serial number [id number]. INTRAOPERATIVE TESTIN. Right ventricular lead impedance 437 ohms, threshold 0.5 volts at 0.4 milliseconds, R waves 3 millivolts. 2. Left ventricular lead programmed LV1-LV2, impedance 646 ohms, threshold 1.3 volts at 4.6 milliseconds. FINAL MEASUREMENTS THROUGH THE DEVICE: 1. Right atrial lead: R waves 2.8 millivolts, impedance 456 ohms, threshold 0.5 volts at 0.4 milliseconds. 2. Left ventricular lead: Programmed LV1 -can?, impedance 627 ohms, threshold 1.25 volts at 0.4 milliseconds. FINAL PARAMETERS: VVIR 60/130, right ventricular amplitude 3.5 volts, pulse width 0.4 milliseconds, sensitivity 1.2 millivolts. Left ventricular amplitude 4 volts, pulse width 0.4 milliseconds. IMPRESSION: Successful implantation of biventricular rate responsive of permanent pacemaker under fluoroscopic guidance along with peripheral venogram secondary to complete heart block. Permanent atrial fibrillation 81 mg. PLAN: Monitor patient overnight, 12-lead ECG, chest x-ray. He cannot lift the left elbow or left shoulder for 1 month. He cannot lift more than 10 pounds with the left arm for 2 weeks. He is to leave the dressing on and dry until his wound check next week. I attest to the content of the Intraoperative Record and any orders documented therein. Any exceptions are noted below. [facility]
--- NOTE | 2020-03-31 13:05 | Operative Report (OR) ---
DATE OF OPERATION: 03/24/2020 PREOPERATIVE DIAGNOSIS: Large post-procedural hematoma. POSTOPERATIVE DIAGNOSIS: Large post-procedural subpectoralis muscle hematoma. SURGEON: Rosi Jensen DO. ASSISTANTS: None. PROCEDURE: Evacuation of a subpectoralis muscle hematoma with reaccumulation of it. ANESTHESIA: Monitored conscious sedation administered by Angie Showers start time 10:37am end time 12:27pm; total of 5mg versed and 125mcg fentanyl BLOOD LOSS: 500 mL. COMPLICATIONS: None. CONDITION: Stable. URINE OUTPUT: Not applicable. SPECIMENS: None. FINDINGS: See below. DRAINS: None. IVF: 500cc plus 1 unit PRBC INDICATIONS: This is an 80-year-old gentleman with past medical history for permanent atrial fibrillation on Coumadin, bifascicular block, complete heart block, hypertension, hypothyroidism, nonischemic cardiomyopathy, ejection fraction of 45%, osteoarthritis and diverticulosis. On 03/23/2020, he underwent a biventricular permanent pacemaker secondary to complete heart block and nonischemic cardiomyopathy with no intraoperative complications. About, 12 hours after the procedure, I was notified that the patient developed a significant hematoma. His INR was 2.2 at that time, so we reversed his INR. He received FFP, vitamin K as well as he got a blood transfusion this morning as his hemoglobin was dropping. So I brought him back to the lab to possibly drain the hematoma in hopes that this would limit any possible infection from a hematoma. CONSENT: Consent was obtained prior to the patient going into electrophysiology lab. The patient was informed of the risks, benefits and alternative procedure. Risks include but not limited to sudden cardiac , cardiac arrhythmias, cerebrovascular accident, myocardial infarction, bleeding and infection. Patient understood these risks and agreed to the procedure as planned. Informed consent was obtained. DESCRIPTION OF THE PROCEDURE: The patient was brought into the electrophysiology lab in a fasting state. He was connected to continuous quality assurance monitor final. Timeout was performed to ensure patient's identity and procedure correctly. He received prophylactic antibiotics prior to incision. 10 mL of 1% lidocaine, bupivacaine mixture were given over the prior surgical incision. Then I disrupted the Dermabond and opened up the incision using the Geraldine and took the sutures out, above the muscle right in the subQ area there was some clotted off blood that I was able to remove; however, the hematoma more seemed to be subpec. I was able to separate some of the pectoralis muscle, tissue and maybe even another muscle layer below that and suctioning out some clots and mostly other blood-tinged fluid with serosanguineous fluid. I suctioned out about 500 mL and the hematoma did significantly compress; however, then I realized that it seemed to continue to be oozing and at this point, the patient was stable. He was getting another unit of packed red blood cells. I descrubbed to speak to a CT surgery up in [place]. The phone went to CT surgery up in [place]. I discussed the case and actually showed her what was going on via [email or web address]. Dr. Blount I think it is. She recommended a chest close up and possibly consider a CAT scan to see if active bleeding. So then I rescrubbed, I flushed the pocket out with copious amounts of bacitracin saline wash. I put the pacemaker in a Tyrx pouch and closed the pocket back up in a 3-layer fashion with 2-0 Vicryl interrupted suture followed by 3-0 Vicryl interrupted suture, followed by a 4-0 Monocryl running stitch and Dermabond followed by a Steve and micropore dressing were applied. The Tyrx pouch equipment, reference number [id number], lot number [id number], expiration 03/28/2020. IMPRESSION: Large subpectoralis muscle hematoma, post-procedural that continues to bleed. PLAN: Transfer to [facility] for higher monitoring in case any urgent further procedures are necessary. I attest to the content of the Intraoperative Record and any orders documented therein. Any exceptions are noted below. [facility]
== END 2020-03-24 16:10 | disposition short-term general hospital (02) | DRG 908 ==
LOC: 2S 06:57 → EP 06:57 → 1E 03-24 02:51